=== PATIENT | male | born 1965 ===

== ENCOUNTER 2016-10-01 21:26 | Emergency (ER) | payer SELFPAY ==
[2016-10-01 21:38] VITALS: BP 133/77; PULSE 75; RESP 18; TEMP 99.1; O2SAT 96
--- NOTE | 2016-10-01 22:35 | ED PDOC ---
Lower Extremity Pain/Injury Time Seen by Provider: 10/01/16 21:45 Chief Complaint (Nursing): Lower Extremity Problem/Injury Chief Complaint (Provider): foot swelling History Per: Patient History/Exam Limitations: no limitations Additional Complaint(s): 51yo M in ED for eval of left foot firs toe fabiola./redness/swelling and ankle swelling to radiation of pain to lateral aspect of leg without calf pain, changes in leg skin color, groin pain, CP, SOB. hx of gout. PERC negative. Past Medical History Reviewed: Historical Data, Nursing Documentation, Vital Signs Vital Signs: Last Vital Signs Temp 99.1 F 10/01/16 21:35 Pulse 75 10/01/16 21:35 Resp 18 10/01/16 21:35 BP 133/77 10/01/16 21:35 Pulse Ox 96 10/01/16 21:35 - Medical History PMH: No Chronic Diseases - Family History Family History: States: No Known Family Hx - Immunization History Hx Tetanus Toxoid Vaccination: No - Home Medications Home Medications: Ambulatory Orders Medication Instructions Recorded Allopurinol [Zyloprim] 100 mg PO BID #14 tab 10/01/16 Indomethacin [Indocin] 50 mg PO DAILY #10 cap 10/01/16 - Allergies Allergies/Adverse Reactions: Allergies Allergy/AdvReac Type Severity Reaction Status Date / Time No Known Allergies Allergy Verified 10/01/16 21:34 Wells Criteria for PE - Wells Criteria for Pulmonary Embolism Clinical Signs and Symptoms of DVT: No P.E is #1 Diagnosis, or Equally Likely: No Heart Rate >100: No Immobilization at least 3 days;Surgery previous 4 weeks: No Previous, objectively diagnosed PE or DVT: No Hemoptysis: No Malignancy w/treatment within 6 months, or palliative: No Total Score: 0 Review of Systems ROS Statement: Except As Marked, All Systems Reviewed And Found Negative Musculoskeletal: Positive for: Foot Pain Physical Exam - Reviewed Nursing Documentation Reviewed: Yes Vital Signs Reviewed: Yes - Physical Exam Appears: Positive for: Well, Non-toxic, No Acute Distress Skin: Positive for: Normal Color, Warm, DRY Cardiovascular/Chest: Positive for: Regular Rate, Rhythm Respiratory: Positive for: CNT, Normal Breath Sounds Gastrointestinal/Abdominal: Positive for: Normal Exam, Bowel Sounds, Soft Extremity: Positive for: Other (right foot: swelling to dorsum of foot, swelling to first toe with pain tendnerss warmth. nuerovasc intact no evidence of foot drop. poliptieal and femoral pulses noted. good tone ) Neurologic/Psych: Positive for: Alert, Oriented - ECG O2 Sat by Pulse Oximetry: 96 - Radiology X-Ray: Interpreted by Me X-Ray Interpretation: No Acute Disease Medical Decision Making Medical Decision Making: dx: acute gout will be given a surgical shoe, crutches, indomethacin in ER and for Dx , allopurinol for maintenance and decadron IM in ED Disposition - Clinical Impression Clinical Impression: Gout - Patient ED Disposition Is Patient to be Admitted: No Counseled Patient/Family Regarding: Studies Performed, Diagnosis, Need For Followup, Rx Given - Disposition Referrals: Podiatry Clinic [Outside] [facility] [Outside] Disposition: Routine/Home Disposition Time: 22:38 Condition: STABLE Prescriptions: Allopurinol [Zyloprim] 100 mg PO BID #14 tab Indomethacin [Indocin] 50 mg PO DAILY #10 cap Instructions: Gout (ED) Forms: [employer] [facility] ([place]), [facility] ED School/Work Excuse Print Language: YORUBA
--- NOTE | 2016-10-02 14:29 | RAD ---
PROCEDURE: Left Ankle Radiographs. HISTORY: swelling COMPARISON: None FINDINGS: BONES: No evidence of acute displaced fracture nor dislocation. The osseous structures appear intact. Talar dome intact. There is mild bilateral soft tissue swelling nonspecific. Rule out sequela of trauma. Underlying vascular etiology not completely excluded. Very tiny posterior and plantar calcaneal enthesophyte formation. JOINTS: Ankle mortise maintained. Minor degenerative changes of the tibiotalar articulation. SOFT TISSUES: Normal. OTHER FINDINGS: None. IMPRESSION: No evidence of acute displaced fracture nor dislocation. Minor DJD tibiotalar articulation. Mild diffuse bilateral nonspecific soft tissue swelling.
--- NOTE | 2016-10-02 14:35 | RAD ---
PROCEDURE: Left Foot Radiographs. HISTORY: swelling COMPARISON: None. FINDINGS: BONES: No evidence of acute displaced fracture nor dislocation. Osseous structures intact. Additionally, there also appears to be very tiny posterior and plantar surface calcaneal enthesophyte formation. JOINTS: Minor degenerative changes tibiotalar articulation. SOFT TISSUES: . There appears to be mild diffuse soft tissue swelling nonspecific. OTHER FINDINGS: None. IMPRESSION: No evidence of acute displaced fracture or dislocation. Findings suggest mild nonspecific diffuse soft tissue swelling.
== END 2016-10-01 22:54 | disposition home or self-care (01) ==
LOC: H.ER 21:26
DX: M10.9 Gout, unspecified (principal)
CPT/HCPCS: 73610; 73630; 96372; 99282; J1100